=== PATIENT | male | born 1980 | race Caucasian/White ===

== ENCOUNTER 2018-06-22 18:53 | Emergency (ER) | payer SELFPAY ==
[2018-06-22 19:01] VITALS: BP 146/90
--- NOTE | 2018-06-22 19:09 | EDPHY ---
H & P Time Seen by Provider: 06/22/18 19:03 HPI/ROS: 37-year-old male presents complaining of bilateral carpal tunnel syndrome states he is from [place] and is currently working in [place] area but plans to return to [place] for surgery for is bilateral carpal tunnels on July 13. States he has been taking ibuprofen Tylenol and gabapentin for the pain but currently has so much pain he needs something stronger at this point. Review of systems As per HPI General no fever no chills no weakness HEENT no eye pain no eye discharge. No eye redness, no sore throat Respiratory no cough, no shortness of breath Cardiac no chest pain, no peripheral edema GI no abdominal pain, no diarrhea, no constipation, no nausea, no vomiting no flank pain, no hematuria, no dysuria Musculoskeletal no myalgias, positive joint pain Heme no easy bruising, no easy bleeding Endo no polyuria, no polydipsia Skin no rashes, no pruritus Neuro no syncope, no dizziness, no headaches Psych is no suicidal ideation, no homicidal ideation Past Medical/Surgical History: Carpal tunnel syndrome bilaterally Social History: Denies alcohol or drug use Smoking Status: Never smoked Physical Exam: 37-year-old male alert and oriented pacing the room, in no acute distress, afebrile vital signs stable Alert and oriented in no acute distress nontoxic appearance, afebrile Atraumatic normocephalic Neck no JVD Lungs clear to auscultation, no respiratory distress Heart regular rate and rhythm Extremities no cyanosis clubbing edema Wearing wrist splints on bilateral wrist Constitutional: Initial Vital Signs Temperature (C) 36 C 06/22/18 18:58 Heart Rate 81 06/22/18 18:58 Respiratory Rate 16 06/22/18 18:58 Blood Pressure 146/90 H 06/22/18 18:58 O2 Sat (%) 93 06/22/18 18:58 O2 Delivery Mode Room Air Allergies/Adverse Reactions: amoxicillin Allergy (Verified 06/22/18 19:01) tramadol [From Ultram] Allergy (Verified 06/22/18 19:01) Home Medications: Medication Instructions Recorded Gabapentin 06/22/18 Medical Decision Making ED Course/Re-evaluation: Patient seen evaluation none for bilateral full tunnel syndrome. I discussed with the patient pain medication options and that I would only be able to give him short-term between 3 and 7 days of a narcotic for this pain. I asked him if he had been to any other providers urgent cares or emergency department to get pain medicines for his bilateral wrist pain, and he stated that he had not. I left the room to begin his paperwork for discharge and to prescribe short- term narcotics however when I returned to the room t to discuss this plan, the patient had eloped. Impression Bilateral carpal tunnel syndrome Differential Diagnosis: Differential diagnosis considered but not limited to: Wrist pain, bilateral carpal tunnel syndrome, drug-seeking Departure - Departure Disposition: Against Medical Advice Clinical Impression: Carpal tunnel syndrome on both sides Condition: Good Referrals: NONE *PRIMARY CARE P,. [Primary Care Provider] - As per Instructions
== END 2018-06-22 19:42 | disposition left against medical advice (07) ==
LOC: CED 18:53
DX: G56.03 Carpal tunnel syndrome, bilateral upper limbs (principal)